=== PATIENT | male | born 1965 | race Caucasian/White ===

== ENCOUNTER 2022-08-08 02:51 | Inpatient (IN) | payer MEDICAID ==
[~2022-08-08] VITALS: Ht 177.8 cm; Wt 71.7 kg
[2022-08-08] MEDS ORDERED: ACETAMINOPHEN WITH CODEINE 300/30MG TABLET PO STA (03:42)
[2022-08-08] MEDS ORDERED: SODIUM CHLORIDE 0.9% 1,000 ML IV ONE (03:45)
[2022-08-08 05:00] LABS: BASOPHILS % 0.5 % (0.0-2.0); EOSINOPHILS % 1.1 % (0.0-5.0); HEMATOCRIT. 40.1 % (42.0-52.0); HEMOGLOBIN. 14.1 g/dL (14.0-18.0); LYMPHOCYTES % 11.3 % (20.0-50.0); MEAN CORPUSCULAR HEMOGLOBIN 36.2 pg (28.0-32.0); MEAN PLATELET VOLUME 7.5 fl (7.4-10.4); MONOCYTES % 11.2 % (2.0-8.0); NEUTROPHILS % 75.9 % (40.0-76.0); PLATELET 216 x1000/uL (130-400)
[2022-08-08 05:19] LABS: CHLORIDE 101 mEq/L (98-107)
[2022-08-08] MEDS ORDERED: TETANUS, DIPHTHERIA, PERTUSSIS VAC/PF 0.5ML (>10YR OLD) IM ONE (06:00)
[2022-08-08] MEDS ORDERED: LIDOCAINE HCL/EPINEPHRINE 1%-EPI 1:100,000 20 ML VIAL INFIL ONE (06:00)
[2022-08-08] MEDS ORDERED: BACITRACIN ZINC OINT UDPKT TOP ONE (06:00)
[2022-08-08] MEDS ORDERED: ACETAMINOPHEN 325MG TABLET PO ONE (06:30)
[2022-08-08] MEDS ORDERED: LIDOCAINE HCL/EPINEPHRINE 1%-EPI 1:100,000 10 ML VIAL INFIL NR (06:30)
[2022-08-08] MEDS ORDERED: ACETAMINOPHEN WITH CODEINE 300/30MG TABLET PO NR (06:30)
[2022-08-08] MEDS ORDERED: IBUPROFEN 600MG TABLET PO ONE (09:15)
[2022-08-08 13:01] LABS: BASOPHILS % 0.7 % (0.0-2.0); EOSINOPHILS % 0.1 % (0.0-5.0); HEMATOCRIT. 37.2 % (42.0-52.0); HEMOGLOBIN. 13.1 g/dL (14.0-18.0); LYMPHOCYTES % 18.3 % (20.0-50.0); MEAN PLATELET VOLUME 7.3 fl (7.4-10.4); MONOCYTES % 11.6 % (2.0-8.0); NEUTROPHILS % 69.3 % (40.0-76.0); PLATELET 196 x1000/uL (130-400); RED BLOOD CELL COUNT 3.65 mill/uL (4.7-6.1)
[2022-08-08] MEDS ORDERED: ONDANSETRON HCL 4MG/2ML INJ IV ONE (13:15)
[2022-08-08] MEDS ORDERED: MORPHINE SULFATE 4 MG/ML CPJ (NOT FOR IM USE) IV ONE (13:15)
[2022-08-08 14:50] VITALS: BP 189/98
[2022-08-08] MEDS ORDERED: CEFTRIAXONE 1 G PREMIX 50 ML IV NR (15:30)
[2022-08-08] MEDS ORDERED: IPRATROPIUM/ALBUTEROL 0.5-3(2.5)MG/3ML NEB HHN PRN (15:30)
[2022-08-08] MEDS ORDERED: ONDANSETRON HCL 4MG/2ML INJ IV PRN (15:30)
[2022-08-08] MEDS ORDERED: SODIUM CHLORIDE 0.9% 1,000 ML IV SCH (15:30)
[2022-08-08] MEDS ORDERED: DIPHENHYDRAMINE 50MG/ML VIAL IV PRN (15:30)
[2022-08-08] MEDS ORDERED: CLONIDINE 0.1MG TABLET PO PRN (15:30)
[2022-08-08 16:00] VITALS: BP 189/98
[2022-08-08] MEDS ORDERED: QUET25TA MT (17:58)
[2022-08-08] MEDS ORDERED: IBUP-2437 MT (17:58)
[2022-08-08] MEDS ORDERED: LOSA25TA26 MT (17:58)
[2022-08-08] MEDS ORDERED: ATOR10TA69 MT (17:58)
[2022-08-08] MEDS ORDERED: BUPR-315 MT (17:58)
[2022-08-08] MEDS ORDERED: *PATIENT'S OWN MEDICATION STORAGE XX SCH (18:30)
[2022-08-08 20:00] VITALS: BP 152/96
[2022-08-08] MEDS: MORPHINE SULFATE 2 MG/ML CPJ (NOT FOR IM USE) IV PRN (21:09)
[2022-08-09] VITALS: BP 119/86
[2022-08-09 04:00] VITALS: BP 131/85
[2022-08-09 08:04] VITALS: BP 137/84
[2022-08-09] MEDS: MORPHINE SULFATE 2 MG/ML CPJ (NOT FOR IM USE) IV PRN ×2 (08:16→21:43)
[2022-08-09] MEDS ORDERED: NALOXONE HCL 0.4MG/ML VIAL IV PRN (10:00)
[2022-08-09 10:17] LABS: BASOPHILS % 0.7 % (0.0-2.0); EOSINOPHILS % 0.1 % (0.0-5.0); HEMATOCRIT. 42.2 % (42.0-52.0); HEMOGLOBIN. 14.7 g/dL (14.0-18.0); LYMPHOCYTES % 21.8 % (20.0-50.0); MEAN CORPUSCULAR HEMOGLOBIN 35.7 pg (28.0-32.0); MEAN CORPUSCULAR VOLUME 102.5 fL (80.0-94.0); MONOCYTES % 11.2 % (2.0-8.0); NEUTROPHILS % 66.2 % (40.0-76.0); RED BLOOD CELL COUNT 4.12 mill/uL (4.7-6.1); RED CELL DISTRIBUTION WIDTH 12.9 % (11.6-14.6)
[2022-08-09 12:00] VITALS: BP 134/90
[2022-08-09 12:12] LABS: CHLORIDE 100 mEq/L (98-107)
[2022-08-09 12:31] LABS: PLATELET 190 x1000/uL (130-400)
[2022-08-09] MEDS ORDERED: CEFTRIAXONE 1,000 MG in DEXTROSE 5% WATER 50 ML IV SCH (15:00)
[2022-08-09 16:00] VITALS: BP 131/84
[2022-08-09] MEDS: HYDROCODONE/ACETAMINOPHEN 5/325MG TABLET PO PRN (17:08)
[2022-08-09] MEDS: LOSARTAN POTASSIUM 25 MG TABLET PO SCH (17:09)
[2022-08-09 18:16] LABS: HEPATITIS B SURFACE ANTIGEN NEGATIVE
[2022-08-09 20:00] VITALS: BP_SYST 114; BP_SYST 136; BP_SYST 141; BP_DIAS 85; BP_DIAS 86; BP_DIAS 93
[2022-08-09] MEDS ORDERED: IOHEXOL-300 100 ML BOTTLE ONE (20:55)
[2022-08-09] MEDS: BUPROPION HCL 75MG TABLET PO SCH (21:43)
[2022-08-09] MEDS: QUETIAPINE FUMARATE 25MG TABLET PO SCH (21:43)
[2022-08-10] VITALS: BP 122/81
[2022-08-10 04:00] VITALS: BP 107/81
[2022-08-10 08:24] VITALS: BP_SYST 104; BP_SYST 116; BP_SYST 132; BP_DIAS 76; BP_DIAS 86; BP_DIAS 88
[2022-08-10] MEDS: BUPROPION HCL 75MG TABLET PO SCH ×2 (08:27→20:57)
[2022-08-10] MEDS: LOSARTAN POTASSIUM 25 MG TABLET PO SCH (08:28)
[2022-08-10] MEDS: HYDROCODONE/ACETAMINOPHEN 5/325MG TABLET PO PRN ×3 (08:28→21:03)
[2022-08-10 12:00] VITALS: BP 141/92
[2022-08-10 12:30] LABS: BASOPHILS % 0.7 % (0.0-2.0); EOSINOPHILS % 1.4 % (0.0-5.0); HEMATOCRIT. 41.5 % (42.0-52.0); HEMOGLOBIN. 14.4 g/dL (14.0-18.0); LYMPHOCYTES % 20.5 % (20.0-50.0); MEAN CORPUSCULAR HEMOGLOBIN 35.2 pg (28.0-32.0); MEAN CORPUSCULAR VOLUME 101.7 fL (80.0-94.0); MEAN PLATELET VOLUME 7.6 fl (7.4-10.4); MONOCYTES % 9.6 % (2.0-8.0); NEUTROPHILS % 67.8 % (40.0-76.0); PLATELET 195 x1000/uL (130-400); RED BLOOD CELL COUNT 4.08 mill/uL (4.7-6.1); RED CELL DISTRIBUTION WIDTH 12.5 % (11.6-14.6)
[2022-08-10 16:00] VITALS: BP 139/86
[2022-08-10] MEDS: ACETAMINOPHEN 325MG TABLET PO PRN (16:33)
[2022-08-10 20:00] VITALS: BP 146/85
[2022-08-10] MEDS: QUETIAPINE FUMARATE 25MG TABLET PO SCH (20:57)
[2022-08-11] VITALS (8 sets, daily range): BP systolic 115–132; BP diastolic 71–91
[2022-08-11 06:56] LABS: BASOPHILS % 0.5 % (0.0-2.0); EOSINOPHILS % 1.8 % (0.0-5.0); HEMATOCRIT. 40.9 % (42.0-52.0); HEMOGLOBIN. 14.3 g/dL (14.0-18.0); LYMPHOCYTES % 27.6 % (20.0-50.0); MEAN CORPUSCULAR HEMOGLOBIN 35.4 pg (28.0-32.0); MEAN CORPUSCULAR VOLUME 101.1 fL (80.0-94.0); MEAN PLATELET VOLUME 7.8 fl (7.4-10.4); MONOCYTES % 9.1 % (2.0-8.0); PLATELET 200 x1000/uL (130-400); RED BLOOD CELL COUNT 4.05 mill/uL (4.7-6.1); RED CELL DISTRIBUTION WIDTH 12.6 % (11.6-14.6)
[2022-08-11 08:32] LABS: CHLORIDE 96 mEq/L (98-107)
[2022-08-11] MEDS: BUPROPION HCL 75MG TABLET PO SCH ×2 (09:49→21:07)
[2022-08-11] MEDS: LOSARTAN POTASSIUM 25 MG TABLET PO SCH (09:49)
[2022-08-11] MEDS: HYDROCODONE/ACETAMINOPHEN 5/325MG TABLET PO PRN ×2 (09:49→21:11)
[2022-08-11] MEDS: QUETIAPINE FUMARATE 25MG TABLET PO SCH (21:07)
[2022-08-12] VITALS: BP 112/78
[2022-08-12 04:00] VITALS: BP 136/91
[2022-08-12 07:09] LABS: HIV SCREEN 4G Non Reactive (Non Reactive)
[2022-08-12 08:00] VITALS: BP 129/95
[2022-08-12] MEDS: LOSARTAN POTASSIUM 25 MG TABLET PO SCH (08:51)
[2022-08-12] MEDS: BUPROPION HCL 75MG TABLET PO SCH ×2 (08:51→21:30)
[2022-08-12] MEDS: HYDROCODONE/ACETAMINOPHEN 5/325MG TABLET PO PRN ×2 (08:51→16:57)
[2022-08-12 16:00] VITALS: BP 128/91
[2022-08-12 20:00] VITALS: BP 135/90
[2022-08-12] MEDS: QUETIAPINE FUMARATE 25MG TABLET PO SCH (21:30)
[2022-08-13] VITALS: BP 123/90
[2022-08-13 04:00] VITALS: BP 140/94
[2022-08-13 08:00] VITALS: BP 129/84
[2022-08-13] MEDS: LOSARTAN POTASSIUM 25 MG TABLET PO SCH (09:03)
[2022-08-13] MEDS: BUPROPION HCL 75MG TABLET PO SCH ×2 (09:03→20:17)
[2022-08-13] MEDS: HYDROCODONE/ACETAMINOPHEN 5/325MG TABLET PO PRN ×2 (09:09→20:29)
[2022-08-13 12:00] VITALS: BP 122/77
[2022-08-13 16:00] VITALS: BP 137/82
[2022-08-13 20:00] VITALS: BP 137/96
[2022-08-13] MEDS: QUETIAPINE FUMARATE 25MG TABLET PO SCH (20:18)
[2022-08-14] VITALS: BP 115/78
[2022-08-14] MEDS: ACETAMINOPHEN 325MG TABLET PO PRN ×2 (00:20→08:41)
[2022-08-14] MEDS: HYDROCODONE/ACETAMINOPHEN 5/325MG TABLET PO PRN ×2 (02:34→08:45)
[2022-08-14 04:00] VITALS: BP 124/91
[2022-08-14 08:00] VITALS: BP 140/80
[2022-08-14] MEDS: BUPROPION HCL 75MG TABLET PO SCH (08:42)
[2022-08-14] MEDS: LOSARTAN POTASSIUM 25 MG TABLET PO SCH (08:42)
[2022-08-14 12:00] VITALS: BP 125/83
[2022-08-14 12:09] VITALS: BP 125/83
== END 2022-08-14 13:29 | disposition home or self-care (01) | DRG 204 ==
LOC: ER 02:51 → 6EST 14:46 → ENRESERV 15:05 → 6WST 08-09 19:15
PROVIDERS: ADMIT Internal Medicine; ATTEND Internal Medicine
PROC: 0HQ1XZZ Repair Face Skin, External Approach (ICD-10-PCS; principal; 2022-08-08)
DX: R55 Syncope and collapse (principal); S22.080A Wedge compression fracture of T11-T12 vertebra, initial encounter for closed fracture; R45.851 Suicidal ideations; G90.8 Other disorders of autonomic nervous system; S32.010A Wedge compression fracture of first lumbar vertebra, initial encounter for closed fracture; S01.81XA Laceration without foreign body of other part of head, initial encounter; Z20.822 Contact with and (suspected) exposure to COVID-19; F43.10 Post-traumatic stress disorder, unspecified; I10 Essential (primary) hypertension; F17.210 Nicotine dependence, cigarettes, uncomplicated; R74.01 Elevation of levels of liver transaminase levels; K80.20 Calculus of gallbladder without cholecystitis without obstruction; K57.90 Diverticulosis of intestine, part unspecified, without perforation or abscess without bleeding; F32.A Depression, unspecified; Z59.00 Homelessness unspecified; Z79.899 Other long term (current) drug therapy; W18.30XA Fall on same level, unspecified, initial encounter; Y93.89 Activity, other specified; Y92.002 Bathroom of unspecified non-institutional (private) residence as the place of occurrence of the external cause; Y99.8 Other external cause status
CPT/HCPCS: 36415; 71045; 74177; 76705; 80048; 80053; 80076; 82962; 83605; 84145; 84484; 85025; 86705; 86709; 86803; 87340; 87389; 87426; 90715; 93005; 93306; 93880; 93970; 97161; 99285; C9803; J0696; J2270; J2405; J3490; J7030; J7060; Q9967

== ENCOUNTER 2022-12-14 15:13 | Emergency (ER) | payer MEDICAID ==
[~2022-12-14] VITALS: Ht 172.7 cm; Wt 87.0 kg
[~2022-12-14 15:13] MED LIST: BUPR-315 MT; LOSA25TA26 MT; QUET25TA MT
[2022-12-14] MEDS ORDERED: SODIUM CHLORIDE 0.9% 1,000 ML IV ONE (17:00)
[2022-12-14 17:41] LABS: BASOPHILS % 0.7 % (0.0-2.0); EOSINOPHILS % 2.1 % (0.0-5.0); HEMOGLOBIN. 14.4 g/dL (14.0-18.0); LYMPHOCYTES % 33.5 % (20.0-50.0); MEAN CORPUSCULAR VOLUME 102.4 fL (80.0-94.0); MEAN PLATELET VOLUME 7.6 fl (7.4-10.4); MONOCYTES % 7.5 % (2.0-8.0); NEUTROPHILS % 56.2 % (40.0-76.0); PLATELET 280 x1000/uL (130-400); RED CELL DISTRIBUTION WIDTH 14.3 % (11.6-14.6)
[2022-12-14 17:49] LABS: CHLORIDE 104 mEq/L (98-107)
[2022-12-14 17:58] LABS: *AMPHETAMINES SCREEN URINE NEGATIVE (NEGATIVE); *BARBITURATES SCREEN URINE NEGATIVE (NEGATIVE); *BENZODIAZEPINES SCREEN URINE NEGATIVE (NEGATIVE); *COCAINE SCREEN URINE NEGATIVE (NEGATIVE); CANNABINOID URINE SCREEN NEGATIVE (NEGATIVE); ETHANOL BLOOD 22 mg/dL; METHADONE URINE SCREEN NEGATIVE (NEGATIVE); OPIATES URINE SCREEN NEGATIVE (NEGATIVE); PHENCYCLIDINE URINE SCREEN NEGATIVE (NEGATIVE)
[2022-12-14] MEDS ORDERED: IBUPROFEN 400MG TABLET PO ONE (22:30)
[2022-12-14] MEDS ORDERED: QUETIAPINE FUMARATE 50MG TABLET PO STA (22:59)
[2022-12-14] MEDS ORDERED: CLONAZEPAM 1MG TABLET PO ONE (23:00)
[2022-12-15] MEDS: OLANZAPINE 5MG TABLET ODT PO SCH ×2 (12:45→17:00)
[2022-12-15] MEDS ORDERED: IBUPROFEN 400MG TABLET PO ONE (15:15)
[2022-12-16] MEDS: OLANZAPINE 5MG TABLET ODT PO SCH ×2 (08:48→10:35)
[2022-12-16] MEDS: QUETIAPINE FUMARATE 50MG TABLET PO SCH ×2 (21:00→22:42)
[2022-12-17] MEDS: OLANZAPINE 5MG TABLET ODT PO SCH ×2 (09:45→17:00)
[2022-12-17] MEDS: QUETIAPINE FUMARATE 50MG TABLET PO SCH (21:13)
[2022-12-18 08:45] VITALS: BP 156/98
== END 2022-12-18 10:12 ==
LOC: ER 15:13
DX: T50.992A Poisoning by other drugs, medicaments and biological substances, intentional self-harm, initial encounter (principal); F32.A Depression, unspecified; I10 Essential (primary) hypertension; R00.0 Tachycardia, unspecified; Y92.89 Other specified places as the place of occurrence of the external cause
CPT/HCPCS: 36415; 80053; 80305; 80307; 80320; 80329; 85025; 87426; 93005; 96360; 96361; 99285; C9803; J7030; Z7610; G0480